=== PATIENT | female | born 1950 | race Two or more races ===

== ENCOUNTER 2023-02-25 20:10 | Emergency (ER) | payer OTHER, MEDICAID ==
[~2023-02-25] VITALS: Ht 165.1 cm; Wt 89.1 kg
[2023-02-25 20:14] VITALS: BP 181/103; PULSE 98; RESP 18; O2SAT 98
== END 2023-02-26 00:47 | disposition left against medical advice (07) ==
LOC: EDBD 20:10 → ER 20:18
DX: R07.89 Other chest pain (principal); M54.50 Low back pain, unspecified; Z53.21 Procedure and treatment not carried out due to patient leaving prior to being seen by health care provider
CPT/HCPCS: 93005

== ENCOUNTER 2023-07-21 09:27 | Emergency (ER) | payer MEDICAID, OTHER ==
[~2023-07-21] VITALS: Ht 152.4 cm; Wt 71.2 kg
[2023-07-21 10:48] LABS: Basophils # (auto) 0.1 10 ^3/uL (0-0.2); Basophils % (auto) 0.5 % (0.0-2.0); Eosinophils # (auto) 0.1 10 ^3/uL (0-0.8); Eosinophils % (auto) 1.1 % (0.0-7.0); Hematocrit 42.3 % (36.0-46.0); Hemoglobin 13.9 g/dL (12.2-16.2); Lymphocytes # (auto) 2.4 10 ^3/uL (0.4-5.4); Lymphocytes % (auto) 24.5 % (10.0-50.0); Mean Corpuscular Hemoglobin 28.2 pg (28.0-32.0); Mean Corpuscular Volume 85.3 fL (80.0-100.0); Monocytes # (auto) 0.7 10 ^3/uL (0-1.3); Monocytes % (auto) 7.5 % (0.0-12.0); Neutrophils # (auto) 6.4 10 ^3/uL (1.6-8.6); Neutrophils % (auto) 66.4 % (37.0-80.0); Nucleated Red Blood Cells % 0.1 %; Red Blood Cells 4.95 10^6/uL (4.0-5.20); Red Cell Distribution Width 12.9 % (11.8-14.3); White Blood Cell 9.7 10^3/uL (4.4-10.8)
[2023-07-21 11:15] LABS: Alanine Aminotransferase 27 U/L (7-40); Albumin 4.8 g/dL (3.2-4.8); Alkaline Phosphatase 87 U/L (46-116); Anion Gap 6 (5-15); Aspartate Aminotransferase 25 U/L (13-40); BUN/Creatinine Ratio 21.9 (10.0-20.0); Bilirubin, Total 0.4 mg/dL (0.2-1.0); Blood Urea Nitrogen 14 mg/dL (9-23); Calcium 9.7 mg/dL (8.5-10.1); Carbon Dioxide 29 mmol/L (20-30); Chloride 104 mmol/L (98-107); Glucose 111 mg/dL (74-106); Sodium 139 mmol/L (136-145); Total Protein 7.8 g/dL (5.7-8.2)
[2023-07-21 11:31] LABS: Urine Bacteria FEW /hpf (None Seen); Urine Blood 1+ /uL (Negative); Urine Clarity Clear (Clear); Urine Color Colorless (Yellow); Urine Protein, UAD Negative (Negative); Urine Specific Gravity 1.011 (1.001-1.035); Urine Urobilinogen Normal (Negative); Urine WBC 6 /hpf (0 - 5)
[2023-07-21] MEDS ORDERED: NITR-87 PO (13:07)
[2023-07-21] MEDS ORDERED: HYDROcodone-ACET 10/325MG TAB PO ONE (13:15)
[2023-07-21] MEDS: HYDROcodone-ACET 7.5/325MG TAB PO ONE ×2 (13:24→13:30)
[2023-07-21 14:41] VITALS: BP 148/80; PULSE 97; RESP 17; TEMP 97.9; O2SAT 97
== END 2023-07-21 14:43 | disposition home or self-care (01) ==
LOC: ER 09:27
DX: N39.0 Urinary tract infection, site not specified (principal); Z90.11 Acquired absence of right breast and nipple
CPT/HCPCS: 36415; 70450; 80053; 81001; 84484; 85025; 93005